=== PATIENT | female | born 1960 | race Caucasian/White ===

== ENCOUNTER 2016-12-23 07:01 | Day surgery (SDC) | payer OTHER ==
[~2016-12-23] VITALS: Ht 160 cm; Wt 78.7 kg
[~2016-12-23 07:01] MED LIST: ALPR2TAB PO; CARI350T PO; HYDR-3612 PO
[2016-12-23 08:25] VITALS: Ht 160 cm; Wt 78.7 kg
[2016-12-23] MEDS ORDERED: FENTAnyl 50 MCG/ML VIAL ONE (08:35)
[2016-12-23] MEDS ORDERED: CLON-412 PO (08:35)
[2016-12-23] MEDS ORDERED: TRAM50TA2 PO (08:35)
[2016-12-23] MEDS ORDERED: MIDAZOLAM 1 MG/ML 2 ML INJ ONE ×2 (08:35→08:36)
[2016-12-23] MEDS ORDERED: PROPOFOL 40 ML ONE (08:35)
[2016-12-23] MEDS ORDERED: GLYCOPYRROLATE 0.4 MG INJ ONE (09:07)
[2016-12-23 10:34] VITALS: BP 111/66; PULSE 62; RESP 19
[2016-12-23 11:00] VITALS: BP 121/67; PULSE 74; RESP 19
--- NOTE | 2016-12-23 11:00 | GILP ---
DATE OF PROCEDURE: 12/23/2016 NAME OF PROCEDURES: 1. Esophagogastroduodenoscopy and biopsy. 2. Colonoscopy and biopsy and polypectomy. SURGEON: Soren Figueroa MD PREOPERATIVE DIAGNOSES: 1. Chronic heartburn. 2. Dysphagia. 3. Change in the bowel habit. 4. Rectal bleeding. 5. History of colon polyps. POSTOPERATIVE DIAGNOSES 1. Reflux esophagitis with ulcer at the lower end of the esophagus. 2. Gastritis with erosions. 3. Gastric mucosal biopsies were taken for Helicobacter pylori test. 4. Colonoscopy all the way to the cecum. 5. Poor prep making the exam suboptimal. 6. Multiple small polyps were removed using the biopsy forceps. 7. One sigmoid colon polyp was removed using the snare and the electrocautery. 8. Internal hemorrhoids. INDICATION FOR THE PROCEDURE: Ms. Juana Arriaza is a 56-year-old female patient who had chronic hear tburn associated with dysphagia. The patient also noticed a change in the bowel habit and rectal bl eeding. She had a history of colon polyps. The patient was scheduled for endoscopy and colonoscopy for further evaluation. The procedures and possible complications are well explained to the patient, she understood and cons ented to the procedure. DESCRIPTION OF PROCEDURE: Under the influence of anesthesia, the gastroscope was carefully introduc ed into the esophagus and under direct vision, it was advanced to the stomach and through the pyloru s into the duodenal bulb and descending duodenum. FINDINGS: ESOPHAGUS: The patient had reflux esophagitis with ulcer at the lower end of the esophagus. STOMACH: The patient had gastritis. Gastric mucosal biopsies were taken for H. pylori test. DUODENUM: Normal. The colonoscope was carefully introduced in the rectum and under direct vision, it was advanced all the way to the cecum. FINDINGS: The patient had poor prep making the exam suboptimal. The patient was noted to have mult iple small polyps and they were removed using the biopsy forceps. She had a polyp in the sigmoid co jeny and it was removed using the snare and electrocautery. She was noted to have internal hemorrhoi ds. She tolerated the procedures very well and there was no complication from the procedures. At the en d of the procedures, she was awake with stable vital signs and she was discharged home to the care o f her family. IMPRESSION: Please see postoperative diagnoses. PLAN: 1. Omeprazole 40 mg p.o. q.a.m. 2. Zantac 300 mg p.o. at bedtime. 3. Await histopathology reports. 4. Because of the poor prep and suboptimal nature of the examination, the patient will need repeat colonoscopy with better preparation in 2 to 3 years. Dictated By: SOREN TURNER/ZEV Conf#: [id number] DID#: [id number] CC: SOREN FIGUEROA MD;*EndCC*
== END 2016-12-23 11:40 | disposition home or self-care (01) ==
LOC: GIL 07:01
PROVIDERS: ATTEND Internal Medicine Gastroenterology
DX: D12.5 Benign neoplasm of sigmoid colon (principal); K21.0 Gastro-esophageal reflux disease with esophagitis; K22.10 Ulcer of esophagus without bleeding; K64.4 Residual hemorrhoidal skin tags
CPT/HCPCS: 43239; 45385; 87081; 88305; J2250; J3010; Z7610